=== PATIENT | female | born 1995 | race Caucasian/White ===

== ENCOUNTER 2021-11-16 15:38 | Emergency (ER) | payer MEDICAID ==
[~2021-11-16] VITALS: Ht 162.6 cm; Wt 95.3 kg
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
--- NOTE | 2021-11-16 16:05 | NUR ---
SEEN BY MD AT ER
--- NOTE | 2021-11-16 16:08 | NUR ---
URINE SPECIMEN SENT TO LAB
--- NOTE | 2021-11-16 17:50 | NUR ---
PT DISCHARGED HOME IN STABLE CONDITION. DISCHARGE INSTRUCTION PROVIDED, VERBALIZED UNDERSTANDING.
[2021-11-16 18:51] VITALS: BP 119/81
== END 2021-11-16 17:50 | disposition home or self-care (01) ==
LOC: ER 15:47
DX: S13.4XXA Sprain of ligaments of cervical spine, initial encounter (principal); S09.90XA Unspecified injury of head, initial encounter; V89.2XXA Person injured in unspecified motor-vehicle accident, traffic, initial encounter; Y93.89 Activity, other specified; Y92.89 Other specified places as the place of occurrence of the external cause; Y99.8 Other external cause status
CPT/HCPCS: 84703-TC